=== PATIENT | female | born 1965 | race Caucasian/White ===

== ENCOUNTER 2017-04-21 10:40 | Emergency (ER) | payer OTHER ==
[~2017-04-21] VITALS: Ht 157.5 cm; Wt 75.5 kg
[2017-04-21 10:42] VITALS: Ht 157.5 cm; Wt 75.5 kg
[2017-04-21] MEDS ORDERED: NICARDipine HCL 30 MG CAPSULE PO ONE (11:00)
[2017-04-21] MEDS ORDERED: hydrALAzine 20 MG INJ IV ONE (11:00)
--- NOTE | 2017-04-21 11:42 | RADRPT ---
PROCEDURE: CT Brain without contrast. CLINICAL INDICATION: Headache TECHNIQUE: A CT of the brain was performed on a multidetector CT scanner utilizing axial sections from the skull base through the vertex without contrast. Images were reviewed on a high-resolution [employer] workstation. Exam CTDI = 44.19 mGy and the DLP = 720.23 mGy-cm. One or more of the following dose reduction techniques were used: Automated exposure control Adjustment of the mA and/or kV according to patient size. Use of iterative reconstruction technique. COMPARISON: None available FINDINGS: There is no evidence of intracranial hemorrhage, mass effect or midline shift. There is mild promine nce of the ventricles likely related to central parenchymal volume loss. No abnormal intra-axial or extra-axial fluid collections are seen. The density of the brain is normal and the dooley/white matte r differentiation is well preserved. The osseous structures are unremarkable. Paranasal sinuses ar e clear. IMPRESSION: 1. No intracranial hemorrhage, mass effect or midline shift. 2. Mild ventriculomegaly suggesting mild central parenchymal atrophy. RPTAT: EE .Chino Martin MD, Date Time Electronically viewed and signed by .Chino Martin MD, on 04/21/2017 11:42 .O/
[2017-04-21] MEDS ORDERED: AMLO-218 PO (12:25)
[2017-04-21] MEDS ORDERED: OLME20TA20 PO (12:25)
--- NOTE | 2017-04-21 12:30 | ERD ---
ER Documentation Chief Complaint Date/Time DATE: 04/21/17 TIME: 12:26 Chief Complaint htn HPI This is a 52-year-old female here for hypertension. The patient states that she was on blood pressure pills last year than her doctor took her off because her blood pressure got better she states. She says that this morning she gradually had blurry vision with some dull diffuse mild headache she felt like her blood pressure was elevated. She checked her blood pressure at home and found it to be high she does not know the numbers. No focal neurological complaints such as numbness weakness or speech change. No chest pain shortness of breath general weakness. Blood pressure on arrival is elevated ROS All systems reviewed and are negative except as per history of present illness. Medications Home Meds Active Scripts Olmesartan Medoxomil (Benicar) 20 Mg Tablet, 20 MG PO DAILY, #30 TAB Prov:MESFIN VAIL DO 04/21/17 Amlodipine Besylate* (Norvasc*) 10 Mg Tablet, 10 MG PO Q HS for 30 Days, TAB Prov:MESFIN VAIL DO 04/21/17 Allergies Allergies: Coded Allergies: No Known Allergy (Unverified , 04/21/17) PMhx/Soc History of Surgery: Yes (uterine fibroid) Hx Neurological Disorder: No Hx Cardiac Disorders: Yes (htn) Hx Psychiatric Problems: No Hx Miscellaneous Medical Probl: No Hx Alcohol Use: No Hx Substance Use: No Hx Tobacco Use: No Smoking Status: Never smoker FmHx Family History: No coronary disease Physical Exam Vitals Vital Signs Date Time Temp Pulse Resp B/P Pulse Ox O2 Delivery O2 Flow Rate FiO2 04/21/17 11:54 63 22 153/65 99 Room Air 04/21/17 11:18 89 18 186/80 99 Room Air 04/21/17 10:46 253/121 04/21/17 10:42 99.4 112 18 265/131 99 Physical Exam Const: Well-developed, well-nourished Head: Atraumatic, normocephalic Eyes: Normal Conjunctiva, PERRLA, EOMI, normal sclera, no nystagmus ENT: Normal External Ears, Nose and Mouth, moist mucus membranes. Neck: Full range of motion. No meningismus, no lymphadenopathy. Resp: Clear to auscultation bilaterally, no wheezing, rhonchi, rales Cardio: Regular rate and rhythm, no murmurs, S1 S2 present Abd: Soft, non tender x 4, non distended. Normal bowel sounds, no guarding or rebound, no pulsitile abdominal masses or bruits Skin: No petechiae or rashes, no ecchymosis , no maculopapular rash Back: No midline or flank tenderness Ext: No cyanosis, or edema, FROM x 4, normal inspection, neurovascularly intact x 4 Neur: Awake and alert, STR 5/5 x 4, sensation intact x 4, no focal findings, cerebellum intact Psych: Normal Mood and Affect Results 24 hrs Current Medications Medications (Trade) Dose Ordered Sig/Jailene Route PRN Reason Start Time Stop Time Status Last Admin Dose Admin Nicardipine HCl (Cardene) 30 mg ONCE ONCE PO 04/21/17 11:00 04/21/17 11:01 DC 04/21/17 11:07 Hydralazine HCl (Apresoline) 10 mg ONCE ONCE IV 04/21/17 11:00 04/21/17 11:01 DC 04/21/17 11:07 Procedures/MDM PROCEDURE: CT Brain without contrast. CLINICAL INDICATION: Headache TECHNIQUE: A CT of the brain was performed on a multidetector CT scanner utilizing axial sections from the skull base through the vertex without contrast. Images were reviewed on a high-resolution PACS workstation. Exam CTDI = 44.19 mGy and the DLP = 720.23 mGy-cm. One or more of the following dose reduction techniques were used: Automated exposure control Adjustment of the mA and/or kV according to patient size. Use of iterative reconstruction technique. COMPARISON: None available FINDINGS: There is no evidence of intracranial hemorrhage, mass effect or midline shift. There is mild prominence of the ventricles likely related to central parenchymal volume loss. No abnormal intra-axial or extra-axial fluid collections are seen. The density of the brain is normal and the dooley/white matter differentiation is well preserved. The osseous structures are unremarkable. Paranasal sinuses are clear. IMPRESSION: 1. No intracranial hemorrhage, mass effect or midline shift. 2. Mild ventriculomegaly suggesting mild central parenchymal atrophy. RPTAT: EE .Chino Martin MD, Date Time Electronically viewed and signed by .Chino Martin MD, on 04/21/2017 11:42 .O/ CC: MESFIN VAIL DO Patient was given Cardene p.o. and hydralazine 10 mg IV Repeat blood pressure is 146/66 Patient says she is asymptomatic at this time CAT scan shows no evidence of intracranial pathology. Patient has had a cough for taking lisinopril. I will put her on Benicar which has a much less cough side effect profile, but could occur, I will also add Norvasc at night. I feel she needs to blood pressure meds to control how high her blood pressure was on arrival Departure Diagnosis: Primary Impression: Hypertension Hypertension type: essential hypertension Qualified Code: I10 - Essential hypertension Condition: Stable Patient Instructions: High Blood Pressure (Hypertension) Referrals: DOCTOR,NOT ON STAFF (PCP) MESIFN VAIL DO Apr 21, 2017 12:30
[2017-04-21 12:32] VITALS: BP 146/66; PULSE 89; RESP 17
== END 2017-04-21 12:46 | disposition home or self-care (01) ==
LOC: E/R 10:40
DX: I10 Essential (primary) hypertension (principal); R51 Headache
CPT/HCPCS: 70450; J0360; 93005; 96374